=== PATIENT | female | born 1960 | race Hispanic/Latino ===

== ENCOUNTER 2023-12-29 17:11 | Emergency (ER) | payer OTHER ==
[~2023-12-29] VITALS: Ht 154.9 cm; Wt 65.3 kg
[2023-12-29 17:45] VITALS: PULSE 70; RESP 16; TEMP 98.8; O2SAT 98
== END 2023-12-29 21:00 | disposition left against medical advice (07) ==
LOC: ER 21:00
DX: I10 Essential (primary) hypertension (principal)